=== PATIENT | male | born 1960 | race Caucasian/White ===

== ENCOUNTER 2023-06-23 14:28 | Emergency (ER) | payer OTHER ==
[2023-06-23] MEDS: niCARdipine HCl 25 MG in Sodium Chloride 0.9% 240 ML IV SCH (14:54)
== END 2023-06-23 15:25 ==
LOC: JP.ED 14:28
DX: I61.9 Nontraumatic intracerebral hemorrhage, unspecified (principal)
CPT/HCPCS: 96365; 99283; 99285; J7050

== ENCOUNTER 2023-09-19 08:43 | Emergency (ER) | payer OTHER ==
[2023-09-19 09:38] LABS: BASOPHILS ABSOLUTE AUTO 0.14 K/uL (0.00-0.10); BASOPHILS PERCENT AUTO 1.3 % (0.1-1.3); EOSINOPHILS PERCENT AUTO 2.8 % (0.0-5.4); HEMATOCRIT 41.2 % (38.4-49.7); HEMOGLOBIN 14.6 g/dL (12.9-16.9); IMMATURE GRAN ABSOLUTE AUTO 0.04 K/uL (0.00-0.23); IMMATURE GRAN PERCENT AUTO 0.4 % (0.0-0.7); LYMPHOCYTES ABSOLUTE AUTO 2.04 K/uL (0.8-3.3); MEAN CORPUSCULAR HEMOGLOBIN 31.8 pg (31.6-35.5); MEAN CORPUSCULAR HGB CONC 35.4 g/dL (31.6-35.5); MEAN CORPUSCULAR VOLUME 89.8 fL (81.4-99.0); MONOCYTES ABSOLUTE AUTO 1.04 K/uL (0.20-0.90); MONOCYTES PERCENT AUTO 9.7 % (3.3-12.6); NEUTROPHILS ABSOLUTE AUTO 7.19 K/uL (1.0-7.6); NEUTROPHILS PERCENT AUTO 66.8 % (40.0-78.1); PLATELET COUNT,PLT 315 K/uL (130-375); RED BLOOD CELL COUNT 4.59 M/uL (4.14-5.76); WHITE BLOOD CELL COUNT,WBC 10.8 K/uL (3.2-11.0)
[2023-09-19 09:53] LABS: CALCIUM 9.7 mg/dL (8.5-10.1); EST CRCL DRUG DOSING (CG) 80.1 mL/min; MAGNESIUM 2.1 mg/dL (1.8-2.4); POTASSIUM,K 4.5 mmol/L (3.6-5.2)
[2023-09-19 09:55] LABS: ANION GAP 10.5 mmol/L (5.0-14.0)
[2023-09-19] MEDS: Iopamidol 755 Mg/ML 100 ML Bottle IV ONE (09:58)
[2023-09-19] MEDS: Sodium Chloride 0.9% 100 ML IV SCH (09:58)
== END 2023-09-19 12:29 | disposition home or self-care (01) ==
LOC: JP.ED 08:43
DX: R20.0 Anesthesia of skin (principal); E11.9 Type 2 diabetes mellitus without complications; I10 Essential (primary) hypertension; Z79.899 Other long term (current) drug therapy
CPT/HCPCS: 36415; 70450; 70496; 70498; 80048; 83735; 85025; 99284; J3490; Q9967